=== PATIENT | female | born 1980 | race Caucasian/White ===

== ENCOUNTER → 2020-01-01 | Outpatient (CLI) | payer BC ==
[~2020-01-01] MED LIST: BACI1TAB3 PO; PNV11TAB5 PO
[2020-01-01 12:23] LABS: BASOPHILS % (AUTO) 0 % (0-1); EOSINOPHILS % (AUTO) 2 % (1-7); LYMPHOCYTES % (AUTO) 31 % (22-44); MEAN CORPUSCULAR HEMOGLOBIN 32.2 pg (27.0-34.8); MEAN CORPUSCULAR HGB CONC 33.4 g/dL (32.4-35.8); MEAN PLATELET VOLUME 8.9 fL (7.4-10.4); MONOCYTES % (AUTO) 8 % (2-9); NEUTROPHILS % (AUTO) 59 % (42-75); PLATELET COUNT 285 x10^3/uL (130-400); RED BLOOD COUNT 4.53 x10^6/uL (3.82-5.3); RED CELL DISTRIBUTION WIDTH 13.2 % (9.6-15.2)
[2020-01-01 12:27] LABS: MD NO
[2020-01-01 12:28] LABS: ALANINE AMINOTRANSFERASE 16 U/L (12-78); ALBUMIN 4.2 g/dL (3.4-5.0); ANION GAP 5 mmol/L (5-15); CALCIUM 10.2 mg/dL (8.5-10.1); CHLORIDE 110 mmol/L (98-107)
[2020-01-01 12:33] LABS: ALKALINE PHOSPHATASE 71 U/L (45-117); BILIRUBIN,TOTAL 0.5 mg/dL (0.2-1.0); CREATININE 0.68 mg/dL (0.55-1.02); TOTAL PROTEIN 7.8 g/dL (6.4-8.2)
[2020-01-01 14:26] LABS: MICROSCOPIC NOT IND
== END | disposition home or self-care (01) ==
LOC: STAR 11:14
PROVIDERS: ATTEND Obstetrics & Gynecology
DX: Z01.812 Encounter for preprocedural laboratory examination (principal); Z20.828 Contact with and (suspected) exposure to other viral communicable diseases; R10.2 Pelvic and perineal pain; N94.6 Dysmenorrhea, unspecified; N92.0 Excessive and frequent menstruation with regular cycle; N80.9 Endometriosis, unspecified; D21.9 Benign neoplasm of connective and other soft tissue, unspecified
CPT/HCPCS: 36415; 80053; 81003; 84702; 85025; 87635

== ENCOUNTER 2020-01-07 05:56 | Day surgery (SDC) | payer BC ==
[~2020-01-07] VITALS: Ht 172.7 cm; Wt 60.5 kg
[2020-01-07 06:39] LABS: HCG UR SG 1.022 (1.003-1.030)
[2020-01-07] MEDS ORDERED: BUPIVACAINE/PF 0.25% ONE (06:55)
[2020-01-07] MEDS ORDERED: EPINEPHRINE 1 MG/ML, 1ML ONE (06:56)
[2020-01-07] MEDS ORDERED: SILVER NITRATE STICK TP ONE (06:56)
[2020-01-07] MEDS ORDERED: CHLORHEXIDINE 15 ML UDC MM ONE (07:00)
[2020-01-07] MEDS ORDERED: LACTATED RINGERS 1,000 ML IV SCH (07:00)
[2020-01-07] MEDS ORDERED: MIDAZOLAM 1 MG/ML, 2ML ONE (07:19)
[2020-01-07] MEDS ORDERED: FENTANYL PF 250 MCG/5ML ONE (07:19)
[2020-01-07] MEDS ORDERED: KETOROLAC 30 MG/1 ML ONE (07:22)
[2020-01-07] MEDS ORDERED: LIDOCAINE GEL 2%, 5ML ONE (07:22)
[2020-01-07] MEDS ORDERED: HYDROcodone/APAP 7.5-325MG/15ML UDC PO PRN (07:30)
[2020-01-07] MEDS ORDERED: OXYcodone 5 MG/5 ML ORAL.SOL UDC PO PRN (07:30)
[2020-01-07] MEDS ORDERED: LABETALOL 5MG/ML, 20ML IV PRN (07:30)
[2020-01-07] MEDS ORDERED: DIPHENHYDRAMINE 50 MG/ML, 1ML IVPush PRN (07:30)
[2020-01-07] MEDS ORDERED: PROMETHAZINE 25 MG/ML, 1ML IVPush PRN (07:30)
[2020-01-07] MEDS ORDERED: HYDROmorphone 1 MG/ML, 1ML INJ IVPush PRN (07:30)
[2020-01-07] MEDS ORDERED: FENTANYL PF 100 MCG/2ML IV PRN (07:30)
[2020-01-07] MEDS ORDERED: hydrALAzine 20 MG/ML, 1ML IV PRN (07:30)
[2020-01-07] MEDS ORDERED: HALOPERIDOL 5 MG/ML IV PRN (07:30)
[2020-01-07] MEDS ORDERED: PROPOFOL 10 MG/ML, 20ML ONE (08:49)
[2020-01-07] MEDS ORDERED: DEXAMETHASONE 4 MG/ML, 1ML ONE (08:49)
[2020-01-07] MEDS ORDERED: SUCCINYLCHOLINE 20 MG/ML, 10ML ONE (08:49)
[2020-01-07] MEDS ORDERED: GLYCOPYRROLATE 0.2MG/1ML, 5ML ONE (08:49)
[2020-01-07] MEDS ORDERED: NEOSTIGMINE 1 MG/ML, 10ML ONE (08:49)
[2020-01-07] MEDS ORDERED: ROCURONIUM 10MG/ML,5ML ONE (08:49)
[2020-01-07] MEDS ORDERED: ONDANSETRON 2MG/ML, 2ML ONE (08:49)
[2020-01-07] MEDS ORDERED: CEFAZOLIN 1,000 MG ONE (08:49)
[2020-01-07] MEDS ORDERED: OXYcodone 5 MG/5 ML ORAL.SOL UDC ONE (09:36)
== END 2020-01-07 10:55 | disposition home or self-care (01) ==
LOC: OUT 05:56
PROVIDERS: ATTEND Obstetrics & Gynecology
DX: R10.2 Pelvic and perineal pain (principal); N94.6 Dysmenorrhea, unspecified; N92.0 Excessive and frequent menstruation with regular cycle; D25.2 Subserosal leiomyoma of uterus; N80.3 Endometriosis of pelvic peritoneum; N80.1 Endometriosis of ovary; N73.6 Female pelvic peritoneal adhesions (postinfective); G89.29 Other chronic pain; K90.0 Celiac disease; Z87.891 Personal history of nicotine dependence; Z88.8 Allergy status to other drugs, medicaments and biological substances; Z91.018 Allergy to other foods; Z90.79 Acquired absence of other genital organ(s); Z80.49 Family history of malignant neoplasm of other genital organs
CPT/HCPCS: 36415; 58558; 58662; 81025; 86850; 86900; 88305; J0171; J0330; J0690; J1100; J1885; J2250; J2405; J2704; J2710; J3010; J7120